=== PATIENT | female | born 1985 | race Hispanic/Latino ===

== ENCOUNTER 2017-04-24 23:31 | Emergency (ER) | payer SELFPAY ==
[2017-04-25 00:40] LABS: Basophils % (Auto) 0.9 % (0.0-1.8); Eosinophils % (Auto) 2.8 % (0.0-4.3); Hematocrit 41.6 % (30.3-42.9); Hemoglobin 13.8 gm/dl (10.1-14.3); Mean Corpuscular HGB Conc 33 % (30-34); Mean Corpuscular Hemoglobin 29 pg (28-32); Mean Corpuscular Volume 86 fl (79-97); Platelet Count 225 K/mm3 (140-440); Red Blood Count 4.82 M/mm3 (3.65-5.03); Red Cell Distribution Width 14.7 % (13.2-15.2); White Blood Count 8.4 K/mm3 (4.5-11.0)
[2017-04-25 01:05] LABS: Alanine Aminotransferase 9 units/L (7-56); Albumin 4.7 g/dL (3.9-5); Albumin/Globulin Ratio 1.7 %; Alkaline Phosphatase 69 units/L (35-129); Anion Gap 16 mmol/L; Bilirubin,Total < 0.20 mg/dL (0.1-1.2); Blood Urea Nitrogen 12 mg/dL (7-17); Calcium 9.2 mg/dL (8.4-10.2); Carbon Dioxide 28 mmol/L (22-30); Glucose 87 mg/dL (65-100); Lipase 34 units/L (13-60); Sodium 140 mmol/L (137-145); Total Protein 7.5 g/dL (6.3-8.2)
[2017-04-25 02:27] LABS: Bacteria,Urine 2+ /HPF (Negative); Bilirubin,Urine NEG (Negative); Blood,Urine LG (Negative); Ketones,Urine NEG (Negative); Leukocyte Esterase,Urine LG (Negative); Mucus,Urine FEW /HPF; Nitrite,Urine POS (Negative); Urobilinogen,Urine < 2.0 mg/dL (<2.0)
[2017-04-25 02:33] LABS: RBC,Urine > 182.0 /HPF (0.0-6.0)
[2017-04-25 06:17] VITALS: BP 114/80
[2017-04-25] MEDS ORDERED: MOTRIN PO ONE (06:18)
[2017-04-25] MEDS ORDERED: LEVAQUIN PO ONE (06:18)
--- NOTE | 2017-04-25 06:19 | Emergency Department Report ---
ED Abdominal Pain HPI - General Chief Complaint: Abdominal Pain Stated Complaint: BLOOD IN URINE/ABD PAIN Time Seen by Provider: 04/25/17 06:00 Source: patient Mode of arrival: Ambulatory Limitations: No Limitations - History of Present Illness Initial Comments: Patient is a 31-year-old female who complains of abdominal pain in the left lower quadrant with blood in her urine. She states that her symptoms started approximately 2 days ago. She describes the pain as sharp and moderate in nature radiating around into her left flank. She's never had symptoms like this before. No nausea vomiting. She believes she's had a subjective fever. MD Complaint: abdominal pain, flank pain Location: LLQ Radiation: L flank Migration to: no migration Severity: moderate Quality: sharp Improves With: nothing Worsens With: nothing Context: sick contacts Associated Symptoms: denies other symptoms - Related Data Previous Rx's Medication Instructions Recorded Last Taken Type Ibuprofen [Motrin 600 MG tab] 600 mg PO Q8H PRN #30 tablet 04/25/17 Unknown Rx Levofloxacin [Levaquin TAB] 500 mg PO QDAY #10 tablet 04/25/17 Unknown Rx Allergies Allergy/AdvReac Type Severity Reaction Status Date / Time hydrocodone Allergy Swelling Verified 04/25/17 00:21 Sulfa (Sulfonamide Allergy Hives Verified 04/25/17 00:21 Antibiotics) ED Review of Systems ROS: Stated complaint: BLOOD IN URINE/ABD PAIN Other details as noted in HPI Constitutional: denies: chills, fever Eyes: denies: eye pain, eye discharge, vision change ENT: denies: ear pain, throat pain Respiratory: denies: cough, shortness of breath, wheezing Cardiovascular: denies: chest pain, palpitations Endocrine: no symptoms reported Gastrointestinal: denies: abdominal pain, nausea, diarrhea Genitourinary: dysuria, frequency, hematuria. denies: urgency, discharge Musculoskeletal: denies: back pain, joint swelling, arthralgia Skin: denies: rash, lesions Neurological: denies: headache, weakness, paresthesias Psychiatric: denies: anxiety, depression Hematological/Lymphatic: denies: easy bleeding, easy bruising ED Past Medical Hx - Past Medical History Previous Medical History?: No - Surgical History Past Surgical History?: Yes Additional Surgical History: Left foot SX, c sect X3 - Social History Smoking Status: Current Every Day Smoker Substance Use Type: Alcohol - Medications Home Medications: Home Medications Medication Instructions Recorded Confirmed Last Taken Type Ibuprofen [Motrin 600 MG tab] 600 mg PO Q8H PRN #30 tablet 04/25/17 Unknown Rx Levofloxacin [Levaquin TAB] 500 mg PO QDAY #10 tablet 04/25/17 Unknown Rx ED Physical Exam - General Limitations: No Limitations General appearance: alert, in no apparent distress - Head Head exam: Present: atraumatic, normocephalic - Eye Eye exam: Present: normal appearance - ENT ENT exam: Present: mucous membranes moist - Neck Neck exam: Present: normal inspection - Respiratory Respiratory exam: Present: normal lung sounds bilaterally. Absent: respiratory distress - Cardiovascular Cardiovascular Exam: Present: regular rate, normal rhythm. Absent: systolic murmur, diastolic murmur, rubs, gallop - GI/Abdominal GI/Abdominal exam: Present: soft, tenderness (mild tenderness in the left lower quadrant), normal bowel sounds. Absent: guarding, rebound, organomegaly, mass - Extremities Exam Extremities exam: Present: normal inspection - Back Exam Back exam: Present: normal inspection - Neurological Exam Neurological exam: Present: alert, oriented X3 - Psychiatric Psychiatric exam: Present: normal affect, normal mood - Skin Skin exam: Present: warm, dry, intact, normal color. Absent: rash ED Course Vital Signs 04/25/17 04/25/17 04/25/17 00:21 03:28 03:30 Temperature 98.3 F Pulse Rate 90 Respiratory Rate Blood Pressure 134/98 124/96 O2 Sat by Pulse 99 100 100 Oximetry 04/25/17 04/25/17 04/25/17 03:37 04:00 04:30 Temperature Pulse Rate Respiratory 18 Rate Blood Pressure 118/84 116/80 O2 Sat by Pulse 100 100 Oximetry 04/25/17 04/25/17 04/25/17 05:00 05:30 06:01 Temperature Pulse Rate Respiratory Rate Blood Pressure 113/82 123/77 114/80 O2 Sat by Pulse 99 98 Oximetry 04/25/17 06:27 Temperature Pulse Rate Respiratory 18 Rate Blood Pressure O2 Sat by Pulse Oximetry ED Medical Decision Making - Lab Data Result diagrams: 04/25/17 00:31 04/25/17 00:31 Laboratory Results - last 24 hr 04/25/17 04/25/17 04/25/17 00:31 00:31 00:31 WBC 8.4 RBC 4.82 Hgb 13.8 Hct 41.6 MCV 86 MCH 29 MCHC 33 RDW 14.7 Plt Count 225 Lymph % (Auto) 31.1 Carbon % (Auto) 5.9 Eos % (Auto) 2.8 Baso % (Auto) 0.9 Lymph # 2.6 Carbon # 0.5 Eos # 0.2 Baso # 0.1 Seg Neutrophils % 59.3 Seg Neutrophils # 5.0 Sodium 140 Potassium 4.0 Chloride 100.0 Carbon Dioxide 28 Anion Gap 16 BUN 12 Creatinine 0.5 L Estimated GFR > 60 BUN/Creatinine Ratio 24.00 Glucose 87 Calcium 9.2 Total Bilirubin < 0.20 AST 12 ALT 9 Alkaline Phosphatase 69 Total Protein 7.5 Albumin 4.7 Albumin/Globulin Ratio 1.7 Lipase 34 HCG, Quant < 2 Urine Color Urine Turbidity Urine pH Ur Specific [place] Urine Protein Urine Glucose (UA) Urine Ketones Urine Blood Urine Nitrite Urine Bilirubin Urine Urobilinogen Ur Leukocyte Esterase Urine WBC (Auto) Urine RBC (Auto) U Epithel Cells (Auto) Urine Bacteria (Auto) Urine Mucus Urine HCG, Qual 04/25/17 01:25 WBC RBC Hgb Hct MCV MCH MCHC RDW Plt Count Lymph % (Auto) Carbon % (Auto) Eos % (Auto) Baso % (Auto) Lymph # Carbon # Eos # Baso # Seg Neutrophils % Seg Neutrophils # Sodium Potassium Chloride Carbon Dioxide Anion Gap BUN Creatinine Estimated GFR BUN/Creatinine Ratio Glucose Calcium Total Bilirubin AST ALT Alkaline Phosphatase Total Protein Albumin Albumin/Globulin Ratio Lipase HCG, Quant Urine Color Yellow Urine Turbidity Clear Urine pH 6.0 Ur Specific [place] 1.017 Urine Protein 30 mg/dl Urine Glucose (UA) Neg Urine Ketones Neg Urine Blood Lg Urine Nitrite Pos Urine Bilirubin Neg Urine Urobilinogen < 2.0 Ur Leukocyte Esterase Lg Urine WBC (Auto) 27.0 H Urine RBC (Auto) > 182.0 U Epithel Cells (Auto) < 1.0 Urine Bacteria (Auto) 2+ Urine Mucus Few Urine HCG, Qual Negative - Medical Decision Making Patient is a 31-year-old female here with complaint of hematuria and left flank pain. She has significant blunt and her urine and elevated WBCs with bacteria. She is mildly tender on exam. I suspect that she has an early pyelonephritis. Plan to treat with oral antibiotics as she is tolerating by mouth without difficulty. Patient given oral antibiotics and ED discussed plan she is comfortable with taking oral antibiotic for 10 days will discharge. Critical care attestation.: If time is entered above; I have spent that time in minutes in the direct care of this critically ill patient, excluding procedure time. ED Disposition Clinical Impression: Pyelonephritis Disposition: DC- TO HOME OR SELFCARE Is pt being admited?: No Does the pt Need Aspirin: No Condition: Stable Instructions: Abdominal Pain (ED) Additional Instructions: Please return for any nausea vomiting or inability to tolerate her oral antibiotics. Prescriptions: Ibuprofen [Motrin 600 MG tab] 600 mg PO Q8H PRN #30 tablet PRN Reason: Pain Levofloxacin [Levaquin TAB] 500 mg PO QDAY #10 tablet Referrals: PRIMARY CARE, [Primary Care Provider] - 3-5 Days Time of Disposition: 06:37
== END 2017-04-25 06:52 | disposition home or self-care (01) ==
LOC: ED 23:31
DX: N12 Tubulo-interstitial nephritis, not specified as acute or chronic (principal); F17.200 Nicotine dependence, unspecified, uncomplicated
CPT/HCPCS: 36415; 80053; 81001; 81025; 83690; 84702; 85025; 99283